=== PATIENT | female | born 2000 | race African-American/Black ===

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

== ENCOUNTER 2023-11-08 17:59 | Emergency (ER) | payer MEDICAID ==
[~2023-11-08] VITALS: Ht 162.6 cm; Wt 70.0 kg
[2023-11-08 19:57] LABS: Basophils # (auto) 0 10 ^3/uL (0-0.2); Basophils % (auto) 0.1 % (0.0-2.0); Eosinophils # (auto) 0 10 ^3/uL (0-0.8); Eosinophils % (auto) 0.4 % (0.0-7.0); Hematocrit 40.7 % (36.0-46.0); Hemoglobin 13.2 g/dL (12.2-16.2); Lymphocytes # (auto) 1.8 10 ^3/uL (0.4-5.4); Lymphocytes % (auto) 13.7 % (10.0-50.0); Mean Corpuscular Hemoglobin 28.8 pg (28.0-32.0); Mean Corpuscular Hgb Conc. 32.4 g/dL (32.0-36.0); Mean Corpuscular Volume 88.8 fL (80.0-100.0); Monocytes # (auto) 0.7 10 ^3/uL (0-1.3); Monocytes % (auto) 5.5 % (0.0-12.0); Neutrophils # (auto) 10.4 10 ^3/uL (1.6-8.6); Neutrophils % (auto) 80.3 % (37.0-80.0); Red Blood Cells 4.58 10^6/uL (4.0-5.20); Red Cell Distribution Width 14.3 % (11.8-14.3)
[2023-11-08] MEDS ORDERED: SODIUM CHLORIDE 0.9% 1,000 ML IV ONE (20:00)
[2023-11-08 20:14] LABS: Alanine Aminotransferase 12 U/L (7-40); Albumin 4.6 g/dL (3.2-4.8); Alkaline Phosphatase 57 U/L (46-116); Anion Gap 9 (5-15); Aspartate Aminotransferase 18 U/L (13-40); BUN/Creatinine Ratio 12.7 (10.0-20.0); Blood Urea Nitrogen 10 mg/dL (9-23); Calcium 9.3 mg/dL (8.7-10.4); Carbon Dioxide 22 mmol/L (20-30); Chloride 106 mmol/L (98-107); Glucose 83 mg/dL (74-106); Lipase 25 U/L (12-53); Sodium 137 mmol/L (136-145)
[2023-11-08 20:15] LABS: Bilirubin, Total 0.6 mg/dL (0.2-1.0); Total Protein 7.4 g/dL (5.7-8.2)
[2023-11-08] MEDS ORDERED: cefTRIAXone 1GM/50ML D5W 50 ML IV ONE (20:30)
[2023-11-08] MEDS ORDERED: HYDROcodone-ACET 5/325MG TAB PO ONE (20:30)
[2023-11-08 21:27] LABS: Amphetamine Screen, Urine Neg (NEGATIVE); Barbiturate Scree,Urine Neg (NEGATIVE); Benzodiazephine Screen, Urine Neg (NEGATIVE); Cannabinoid Screen, Urine Pos (NEGATIVE); Cocaine Screen, Urine Neg (NEGATIVE); Opiate Scree,Urine Neg (NEGATIVE); Phencyclidine Screen, Urine Neg (NEGATIVE)
[2023-11-08 21:31] LABS: Urine Bacteria NONE SEEN /hpf (None Seen); Urine Blood 3+ /uL (Negative); Urine Clarity HAZY (Clear); Urine Color PINK (Yellow); Urine Mucus FEW (None Seen); Urine Protein, UAD 1+ (Negative); Urine Specific Gravity 1.023 (1.001-1.035); Urine WBC 112 /hpf (0 - 5)
[2023-11-08] MEDS ORDERED: KETOROLAC TROMETH 60MG/2ML VIAL IV ONE (21:45)
[2023-11-08] MEDS ORDERED: IOHEXOL 350 MG/ML 100ML IJ ONE (22:08)
[2023-11-08] MEDS ORDERED: HYDR1TAB97 PO (23:45)
[2023-11-08] MEDS ORDERED: CEPH500C PO (23:45)
[2023-11-09 00:12] VITALS: BP 109/60; PULSE 98; RESP 16; TEMP 98.2; O2SAT 98
== END 2023-11-09 00:18 | disposition home or self-care (01) ==
LOC: ER 17:59
DX: N93.9 Abnormal uterine and vaginal bleeding, unspecified (principal); R10.2 Pelvic and perineal pain; D25.9 Leiomyoma of uterus, unspecified
CPT/HCPCS: 36415; 74177; 76856; 80053; 80307; 81001; 83605; 83690; 84484; 84702; 85025; 87040; 96365; 96366; 96375; 99285; J0696; J1885; J7030; Q9967

== ENCOUNTER 2024-08-12 10:31 | Inpatient (IN) | payer MEDICAID ==
[~2024-08-12] VITALS: Ht 157.5 cm; Wt 84.3 kg
[~2024-08-12 10:31] MED LIST: CEPH500C PO; HYDR1TAB97 PO
[2024-08-12 11:17] LABS: Basophils # (auto) 0 10 ^3/uL (0-0.2); Basophils % (auto) 0.1 % (0.0-2.0); Eosinophils # (auto) 0 10 ^3/uL (0-0.8); Eosinophils % (auto) 0.1 % (0.0-7.0); Hematocrit 42.4 % (36.0-46.0); Hemoglobin 14.1 g/dL (12.2-16.2); Lymphocytes # (auto) 0.3 10 ^3/uL (0.4-5.4); Lymphocytes % (auto) 3.5 % (10.0-50.0); Mean Corpuscular Hemoglobin 29.2 pg (28.0-32.0); Mean Corpuscular Hgb Conc. 33.2 g/dL (32.0-36.0); Mean Corpuscular Volume 88.1 fL (80.0-100.0); Monocytes # (auto) 0.3 10 ^3/uL (0-1.3); Monocytes % (auto) 3.4 % (0.0-12.0); Neutrophils # (auto) 8.4 10 ^3/uL (1.6-8.6); Neutrophils % (auto) 92.9 % (37.0-80.0); Nucleated Red Blood Cells % 0.1 %; Platelet Count (auto) 279 10^3/uL (140-450); Red Blood Cells 4.81 10^6/uL (4.0-5.20); Red Cell Distribution Width 14.7 % (11.8-14.3)
[2024-08-12 11:31] LABS: Chloride 112 mmol/L (98-107); Potassium 4.6 mmol/L (3.5-5.1); Sodium 143 mmol/L (136-145)
[2024-08-12 11:32] LABS: Anion Gap 9 (5-15); Calcium 9.7 mg/dL (8.7-10.4); Carbon Dioxide 22 mmol/L (20-31)
[2024-08-12 11:37] LABS: BUN/Creatinine Ratio 25.7 (10.0-20.0); Blood Urea Nitrogen 19 mg/dL (9-23); Glucose 106 mg/dL (74-106)
[2024-08-12 12:05] LABS: Amphetamine Screen, Urine Neg (NEGATIVE); Barbiturate Scree,Urine Neg (NEGATIVE); Benzodiazephine Screen, Urine Neg (NEGATIVE); Cocaine Screen, Urine Neg (NEGATIVE); Opiate Scree,Urine Neg (NEGATIVE)
[2024-08-12 12:06] LABS: Cannabinoid Screen, Urine Neg (NEGATIVE); Phencyclidine Screen, Urine Neg (NEGATIVE)
[2024-08-12 12:15] LABS: Urine Bacteria FEW /hpf (None Seen); Urine Blood 1+ /uL (Negative); Urine Clarity Clear (Clear); Urine Color Light-Yellow (Yellow); Urine Mucus FEW (None Seen); Urine Protein, UAD TRACE (Negative); Urine Urobilinogen Normal (Negative); Urine WBC 2 /hpf (0 - 5); Urine pH 5.5 (5.0-9.0)
[2024-08-12 13:25] VITALS: PULSE 111; RESP 18; O2SAT 98
[2024-08-12] MEDS: SODIUM CHLORIDE 0.9% 1,000 ML IV ONE (13:40)
[2024-08-12] MEDS: ONDANSETRON HCL 4 MG/2 ML VIAL IV ONE (13:43)
[2024-08-12] MEDS: MORPHINE SULFATE 4 MG/ML SYR/VIAL IV ONE (13:44)
[2024-08-12] MEDS ORDERED: ONDANSETRON HCL 4 MG/2 ML VIAL IV PRN ×2 (15:30→18:00)
[2024-08-12] MEDS ORDERED: MORPHINE SULFATE INJ 2 MG/ml SYRG IV PRN (15:30)
[2024-08-12] MEDS ORDERED: NITROGLYCERIN 0.4 MG SL TAB SL PRN (15:30)
[2024-08-12] MEDS: DICYCLOMINE HCL (10MG/ML) 2 ML AMPULE IM ONE (15:30)
[2024-08-12 17:40] VITALS: BP 104/61; PULSE 108; RESP 16; TEMP 98.5; O2SAT 100
[2024-08-12] MEDS: DICYCLOMINE HCL 10 MG CAP PO SCH (17:57)
[2024-08-12] MEDS: SODIUM CHLORIDE 0.9% 1,000 ML IV SCH (18:05)
[2024-08-12] MEDS: PANTOPRAZOLE 40 MG/10 ML VIAL INJ IV ONE (18:22)
[2024-08-12 18:30] VITALS: PULSE 108; RESP 16; O2SAT 100
[2024-08-12 18:32] LABS: Phosphorus 3.2 mg/dL (2.4-5.1)
[2024-08-12 20:38] LABS: INR 1.1 (0.9-1.15); Partial Thromboplastin Time 31.6 SEC (24.5-34.5); Prothrombin Time 11.6 sec (9.3-11.8)
[2024-08-12 21:00] VITALS: BP 99/63; PULSE 96; RESP 16; TEMP 98.9; O2SAT 99
[2024-08-13] VITALS (7 sets, daily range): BP systolic 93–108; BP diastolic 45–61; PULSE 66–80; RESP 16–20; TEMP 98.1–98.7; O2SAT 94–100
[2024-08-13 05:57] LABS: Basophils # (auto) 0 10 ^3/uL (0-0.2); Basophils % (auto) 0.4 % (0.0-2.0); Eosinophils # (auto) 0 10 ^3/uL (0-0.8); Eosinophils % (auto) 0.1 % (0.0-7.0); Hematocrit 40.4 % (36.0-46.0); Hemoglobin 13.6 g/dL (12.2-16.2); Lymphocytes # (auto) 1.4 10 ^3/uL (0.4-5.4); Lymphocytes % (auto) 30.5 % (10.0-50.0); Mean Corpuscular Hemoglobin 30.2 pg (28.0-32.0); Mean Corpuscular Hgb Conc. 33.7 g/dL (32.0-36.0); Mean Corpuscular Volume 89.5 fL (80.0-100.0); Monocytes # (auto) 0.3 10 ^3/uL (0-1.3); Monocytes % (auto) 6.2 % (0.0-12.0); Neutrophils # (auto) 2.9 10 ^3/uL (1.6-8.6); Neutrophils % (auto) 62.8 % (37.0-80.0); Nucleated Red Blood Cells % 0.2 %; Platelet Count (auto) 219 10^3/uL (140-450); Red Blood Cells 4.52 10^6/uL (4.0-5.20); Red Cell Distribution Width 14.9 % (11.8-14.3); White Blood Cell 4.6 10^3/uL (4.4-10.8)
[2024-08-13 06:06] LABS: Alanine Aminotransferase 15 U/L (7-40); Albumin 3.9 g/dL (3.2-4.8); Alkaline Phosphatase 41 U/L (46-116); Anion Gap 8 (5-15); Aspartate Aminotransferase 16 U/L (13-40); BUN/Creatinine Ratio 10.5 (10.0-20.0); Carbon Dioxide 19 mmol/L (20-31); Chloride 112 mmol/L (98-107); Glucose 78 mg/dL (74-106); Potassium 3.5 mmol/L (3.5-5.1); Sodium 139 mmol/L (136-145)
[2024-08-13 06:07] LABS: Bilirubin, Total 0.5 mg/dL (0.2-1.0); Total Protein 6.3 g/dL (5.7-8.2)
[2024-08-13 06:11] LABS: Blood Urea Nitrogen 8 mg/dL (9-23)
[2024-08-13 09:31] LABS: Free T4 (Free Thyroxine) 1.02 ng/dL (0.89-1.76); T3 Total 0.78 ng/mL (0.60-1.81)
[2024-08-13] MEDS: PANTOPRAZOLE 40 MG/10 ML VIAL INJ IV SCH (10:28)
[2024-08-13] MEDS: ERGOCALCIFEROL 50,000 UNIT(1.25MG) CAP PO SCH (10:30)
[2024-08-13] MEDS: ACETAMINOPHEN 500 MG TAB PO PRN (17:20)
[2024-08-14] VITALS (10 sets, daily range): BP systolic 90–115; BP diastolic 41–74; PULSE 55–78; RESP 16–20; TEMP 97.8–98.9; O2SAT 95–100
[2024-08-14 06:56] LABS: Basophils # (auto) 0 10 ^3/uL (0-0.2); Basophils % (auto) 0.3 % (0.0-2.0); Chloride 111 mmol/L (98-107); Eosinophils # (auto) 0 10 ^3/uL (0-0.8); Eosinophils % (auto) 0.9 % (0.0-7.0); Hematocrit 35.3 % (36.0-46.0); Lymphocytes % (auto) 37.2 % (10.0-50.0); Mean Corpuscular Hemoglobin 29.9 pg (28.0-32.0); Mean Corpuscular Hgb Conc. 34.1 g/dL (32.0-36.0); Mean Corpuscular Volume 87.7 fL (80.0-100.0); Monocytes # (auto) 0.7 10 ^3/uL (0-1.3); Monocytes % (auto) 12.2 % (0.0-12.0); Neutrophils # (auto) 2.6 10 ^3/uL (1.6-8.6); Neutrophils % (auto) 49.4 % (37.0-80.0); Nucleated Red Blood Cells % 0.1 %; Platelet Count (auto) 218 10^3/uL (140-450); Potassium 3.3 mmol/L (3.5-5.1); Red Blood Cells 4.02 10^6/uL (4.0-5.20); Red Cell Distribution Width 14.2 % (11.8-14.3); Sodium 141 mmol/L (136-145); White Blood Cell 5.4 10^3/uL (4.4-10.8)
[2024-08-14 06:57] LABS: Anion Gap 8 (5-15); Carbon Dioxide 22 mmol/L (20-31)
[2024-08-14 06:58] LABS: Calcium 8.9 mg/dL (8.7-10.4)
[2024-08-14 07:02] LABS: Glucose 81 mg/dL (74-106)
[2024-08-14 07:03] LABS: BUN/Creatinine Ratio 8.3 (10.0-20.0); Blood Urea Nitrogen 6 mg/dL (9-23)
[2024-08-14 07:06] LABS: RPR Non Reactive (Non Reactive)
[2024-08-14] MEDS: cefTRIAXone 1GM/50ML D5W 50 ML IV ONE (11:12)
[2024-08-14] MEDS: POTASSIUM CHL 20MEQ/100ML 100 ML IV ONE (11:12)
[2024-08-14] MEDS ORDERED: PROPOFOL 10 MG/ML 20 ML IV ONE ×2 (13:24→13:38)
[2024-08-14] MEDS: POTASSIUM CHL 20 Meq TABLET PO ONE (15:54)
[2024-08-14] MEDS: LIDOCAINE HCL 2 %PF INJ 10ML AMP IJ ONE (17:45)
[2024-08-14] MEDS: NYSTATIN (MOUTH-THROAT) 500,000 UNITS/5 ML SUSP MT SCH (18:35)
[2024-08-14] MEDS: SUCRALFATE 1 GM/10 ML ORAL SUSP PO SCH (22:19)
[2024-08-14] MEDS: DOCUSATE SOD 100 MG CAP PO PRN (22:25)
[2024-08-15 01:00] VITALS: BP 103/59; PULSE 58; RESP 18; TEMP 98.7; O2SAT 100
[2024-08-15 05:00] VITALS: BP 86/43; PULSE 56; RESP 18; TEMP 98.6; O2SAT 99
[2024-08-15 07:04] LABS: Anion Gap 8 (5-15); Carbon Dioxide 20 mmol/L (20-31); Chloride 111 mmol/L (98-107); Potassium 3.5 mmol/L (3.5-5.1); Sodium 139 mmol/L (136-145)
[2024-08-15 07:08] LABS: Glucose 83 mg/dL (74-106)
[2024-08-15 07:11] LABS: BUN/Creatinine Ratio 6.7 (10.0-20.0); Blood Urea Nitrogen < 5 mg/dL (9-23)
[2024-08-15 07:18] LABS: Basophils # (auto) 0 10 ^3/uL (0-0.2); Basophils % (auto) 0.2 % (0.0-2.0); Eosinophils # (auto) 0 10 ^3/uL (0-0.8); Eosinophils % (auto) 0.7 % (0.0-7.0); Hematocrit 34.4 % (36.0-46.0); Hemoglobin 11.8 g/dL (12.2-16.2); Lymphocytes % (auto) 39.2 % (10.0-50.0); Mean Corpuscular Hemoglobin 30.1 pg (28.0-32.0); Mean Corpuscular Hgb Conc. 34.4 g/dL (32.0-36.0); Mean Corpuscular Volume 87.3 fL (80.0-100.0); Monocytes # (auto) 0.6 10 ^3/uL (0-1.3); Monocytes % (auto) 11.9 % (0.0-12.0); Neutrophils # (auto) 2.4 10 ^3/uL (1.6-8.6); Nucleated Red Blood Cells % 0.1 %; Platelet Count (auto) 218 10^3/uL (140-450); Red Blood Cells 3.94 10^6/uL (4.0-5.20); Red Cell Distribution Width 14.1 % (11.8-14.3)
[2024-08-15 08:29] VITALS: BP 92/53; PULSE 58; RESP 18; TEMP 98.3; O2SAT 100
[2024-08-15] MEDS: cefTRIAXone 1GM/50ML D5W 50 ML IV SCH (09:06)
[2024-08-15 09:20] LABS: Hepatitis B Surface Antigen Negative (Negative)
[2024-08-15 09:41] LABS: Hepatitis B Core IgM Negative; Hepatitis C Antibody Negative (Negative)
[2024-08-15] MEDS ORDERED: PANT40TA2 PO (09:44)
[2024-08-15] MEDS ORDERED: CEPH250C PO (09:44)
[2024-08-15] MEDS ORDERED: ERGO1CAP23 PO (09:44)
[2024-08-15] MEDS ORDERED: NYS5LQ MT (09:44)
[2024-08-15] MEDS ORDERED: SUCR1SUS26 PO (09:44)
[2024-08-15 09:45] LABS: Hepatitis A Ab IgM Negative
[2024-08-15 10:07] LABS: Chlamydia Trachomatis, NAA Positive (Negative); Neisseria gonorrhoeae, NAA Negative (Negative)
[2024-08-15 10:56] VITALS: TEMP 36.8
== END 2024-08-15 12:14 | disposition home or self-care (01) | DRG 249 ==
LOC: ER 10:31 → WEST WING 15:29 → OVERFLOW 15:29 → WEST WING 17:40
PROVIDERS: ADMIT Internal Medicine; ATTEND Internal Medicine
PROC: 0DB68ZX Excision of Stomach, Via Natural or Artificial Opening Endoscopic, Diagnostic (ICD-10-PCS; 2024-08-14)
PROC: 0DB58ZX Excision of Esophagus, Via Natural or Artificial Opening Endoscopic, Diagnostic (ICD-10-PCS; 2024-08-14)
PROC: 0DB98ZX Excision of Duodenum, Via Natural or Artificial Opening Endoscopic, Diagnostic (ICD-10-PCS; principal; 2024-08-14 13:26)
DX: K52.9 Noninfective gastroenteritis and colitis, unspecified (principal); B37.81 Candidal esophagitis; K31.3 Pylorospasm, not elsewhere classified; E55.9 Vitamin D deficiency, unspecified; E86.0 Dehydration; F12.10 Cannabis abuse, uncomplicated; N30.00 Acute cystitis without hematuria; K29.70 Gastritis, unspecified, without bleeding; Z82.49 Family history of ischemic heart disease and other diseases of the circulatory system; Z79.899 Other long term (current) drug therapy
CPT/HCPCS: 36415; 74176; 80048; 80053; 80074; 80307; 81001; 81025; 82270; 82306; 82607; 83036; 83690; 83735; 84100; 84439; 84443; 84480; 84484; 84702; 85025; 85048; 85610; 85730; 86592; 86703; 86850; 86900; 86901; 87045; 87086; 87088; 87186; 87427; 93005; 96361; 96374; 96375; G0378; J2405; J2470; J2704; J3480

== ENCOUNTER → 2024-10-02 | Outpatient (CLI) | payer MEDICAID ==
[~2024-10-02] MED LIST changes: +CEPH250C PO; -CEPH500C PO; +ERGO1CAP23 PO; -HYDR1TAB97 PO; +NYS5LQ MT; +PANT40TA2 PO; +SUCR1SUS26 PO
[2024-10-03 08:06] LABS: RPR Non Reactive (Non Reactive)
== END | disposition home or self-care (01) ==
LOC: LAB 14:07
PROVIDERS: ATTEND Obstetrics & Gynecology
DX: Z11.3 Encounter for screening for infections with a predominantly sexual mode of transmission (principal)
CPT/HCPCS: 36415; 86592; 86703; 87340; 87902